=== PATIENT | female | born 1980 | race Caucasian/White ===

== ENCOUNTER 2023-01-07 05:38 | Inpatient (IN) ==
--- NOTE | 2022-12-31 14:47 | Anesthesiology Consultation ---
Date of Service December 31, 2022 Assessment & Plan (1) Encounter for pre-operative examination: Chart Review Chart Review: mica splitter initiated -COVID screening: Per PAT nursing assessment on 12/31/22. No known COVID-19 positive contacts or current COVID-19 related symptoms. Travel screen negative. Patient vaccinated for Covid. At surgeon discretion if preop Covid testing being done. History Surgery Operation Date: 01/07/23 07:30 Proposed Procedures p Primary Section - Mykel Krishna MD Height/Weight Height: 5 ft 4 in Weight: 86.183 kg Allergies Allergy/AdvReac Type Severity Reaction Status Date / Time No Known Allergies Allergy Unverified 12/31/22 13:58 Medications Home Medications Medication Instructions Recorded Confirmed Last Taken 1 tab PO QAM 12/31/22 12/31/22 Unknown Vitamin C 1 tab PO QAM 12/31/22 12/31/22 Unknown calcium 1 tab PO QAM 12/31/22 12/31/22 Unknown choline 1 cap PO QAM 12/31/22 12/31/22 Unknown famotidine 20 mg tablet (Pepcid) 20 mg PO DAILY PRN gerd 12/31/22 12/31/22 Unknown fiber 1 cap PO DAILY 12/31/22 12/31/22 Unknown iron 1 dose PO QAM 12/31/22 12/31/22 Unknown Past Medical History Medical History Depression with anxiety "mild" GERD (gastroesophageal reflux disease) History of hemorrhoids History of migraine Past Family History Family History Other No family history of adverse response to anesthesia Past Surgical History Surgical History History of wisdom tooth extraction Social History Smoking Status: Former smoker Do You Dip or Chew Tobacco: No Smoking End Date: as a teen Hx Alcohol Use: No Hx Substance Use: No substance use type: does not use Lab Results Anesthesia Preop Results Results Anesthesia Widget: WBC 9.26 K/ul (4.8-10.8) 11/27/22 Hgb 13.2 g/dl (12.0-16.0) 11/27/22 Hct 39.0 % (37.0-47.0) 11/27/22 Plt 176 K/uL (130-400) 11/27/22 Na 136 mmol/L (136-145) 11/27/22 K 3.8 mmol/L (3.5-5.1) 11/27/22 Cl 105 mmol/L (98-107) 11/27/22 CO2 25 mmol/L (21-32) 11/27/22 BUN 11 mg/dl (6-23) 11/27/22 Creat 0.72 mg/dl (0.6-1.2) 11/27/22 Glucose Level 76 mg/dl (70-99(Fasting)) 11/27/22 PT 9.8 Seconds (9.0-12.0) 11/27/22 PTT 25.6 Seconds (21.0-31.0) 11/27/22 INR 0.9 (0.9-1.1) 11/27/22 TSH 1.810 uIu/ml (0.300-4.500) 11/27/22 Urine Color Yellow 11/27/22 Urine Appearance Clear (Clear) 11/27/22 Urine pH 7.0 (4.5-7.5) 11/27/22 Urine Specific [place] 1.005 (1.000-1.030) 11/27/22 Urine Protein Negative (Negative) 11/27/22 Urine Glucose (UA) Negative (Negative) 11/27/22 Urine Ketones Negative (Negative) 11/27/22 Urine Blood Negative (Negative) 11/27/22 Urine Nitrite Negative (Negative) 11/27/22 Urine Bilirubin Negative (Negative) 11/27/22 Urine Urobilinogen Negative (Negative) 11/27/22 Urine Leukocyte Esterase Negative (Negative) 11/27/22
[2023-01-07] MEDS ORDERED: LACTATED RINGER'S 1,000 ML IV SCH ×3 (06:00→09:25)
[2023-01-07] MEDS ORDERED: CITRIC ACID/SODIUM CITRATE 15 ML UDC PO SCH (06:00)
[2023-01-07] MEDS ORDERED: ceFAZolin 2,000 MG in SYRINGE 0 ML IV SCH (06:00)
[2023-01-07 06:41] LABS: Basophils # (auto) 0.07 K/uL (0-0.2); Basophils % (auto) 0.8 %; Eosinophils # (auto) 0.18 K/uL (0-0.50); Hematocrit (blood only) 35.5 % (37.0-47.0); Hemoglobin 12.2 g/dl (12.0-16.0); Immature Granulocytes # (auto) 0.08 K/uL (0.01-0.20); Immature Granulocytes % (auto) 0.9 %; Lymphocytes # (auto) 2.26 K/uL (1.2-3.4); Lymphocytes % (auto) 25.3 %; Mean Corpuscular Hemoglobin 29.8 pg (25.0-34.0); Mean Corpuscular Hgb Conc 34.4 g/dL (32.0-36.0); Mean Corpuscular Volume 86.8 fL (80.0-100.0); Mean Platelet Volume 13.4 fL (9.4-12.4); Monocytes # (auto) 0.78 K/uL (0.11-0.59); Monocytes % (auto) 8.7 %; Neutrophils # (auto) 5.55 K/uL (1.40-6.50); Neutrophils % (auto) 62.3 %; Platelet Count 158 K/uL (130-400); RDW Standard Deviation 40.7 fL (36.4-46.3); Red Blood Count 4.09 M/uL (4.20-5.40); White Blood Count 8.92 K/ul (4.8-10.8)
[2023-01-07] MEDS ORDERED: OXYTOCIN 10 UNITS/ML 10ML VIAL ONE ×3 (07:01→08:10)
[2023-01-07] MEDS ORDERED: fentaNYL citrate PF 100 MCG/2 ML VIAL ONE (07:01)
[2023-01-07] MEDS ORDERED: MoRPHine SULFATE PF 1 MG/ML 10 ML AMP/VIAL ONE (07:01)
--- NOTE | 2023-01-07 07:58 | History & Physical Report ---
Date of Service January 07, 2023 Assessment & Plan (1) Breech presentation: Plan Primary Section today Admission and Anticipated Discharge Date Admission Date: January 07, 2023 History of Present Illness Chief Complaint: breech Primary Care Provider: Jet Gomez MD 42 F P0000 at 39+ weeks admitted for primary section for breech. Ultrasound done to confirm breech. covid is negative Allergies Allergy/AdvReac Type Severity Reaction Status Date / Time No Known Allergies Allergy Unverified 12/31/22 13:58 Home Medications Medication Instructions Recorded Confirmed Type 1 tab PO QAM 12/31/22 01/07/23 History Vitamin C 1 tab PO QAM 12/31/22 01/07/23 History calcium 1 tab PO QAM 12/31/22 01/07/23 History choline 1 cap PO QAM 12/31/22 01/07/23 History famotidine 20 mg tablet (Pepcid) 20 mg PO DAILY PRN gerd 12/31/22 12/31/22 History fiber 1 cap PO DAILY 12/31/22 12/31/22 History iron 1 dose PO QAM 12/31/22 12/31/22 History Patient History Medical History Depression with anxiety "mild" GERD (gastroesophageal reflux disease) History of hemorrhoids History of migraine Surgical History History of wisdom tooth extraction Family History Other No family history of adverse response to anesthesia Social History Smoking Status: Never smoker Tobacco Type: Cigarettes Smoking End Date: as a teen; Second Hand Exposure: No; Do You Dip or Chew Tobacco: No; Tobacco Cessation Education Requested by Patient: No Hx Alcohol Use: No Hx Substance Use: No Preferred Language: Arabic Communication Ability: Effective Dumper Bulk System Required: No Beliefs That Will Affect Care: None marital status: Current Living Situation: Spouse and Family Current Living Situation Comment: FOB's children Ally and Jah Other Information That Helps Us Care for You: No Feels Safe at Home: Yes Safety Concerns: Feels Safe At This Time Assistive Devices: None OB History prmip SHACKLER History neg Review of Systems All systems reviewed & are unremarkable except as noted in HPI & below Physical Exam Constitutional: WD/WN, vitals as above Eyes: PERRL, conjunctivae normal, anicteric sclerae Respiratory: normal respiratory effort, lungs clear to auscultation Cardiovascular: RRR, no murmur, no edema Gastrointestinal (Abdomen): normal bowel sounds, soft, nontender, no hepatosplenomegaly Musculoskeletal: Extremities: extremities normal to inspection Skin: no rashes, warm and dry Neurologic: patellar DTR's 2+ bilat, sensation intact Psychiatric: A+Ox3, euthymic affect Genitourinary: OB Exam Monitor Tracing: + external FHT monitor used, + external uterine monitor used, + category I and + normal FHT variability Results & Data ([facility]) Vital Signs (Past 12 Hours) Vital Signs Temp Pulse Resp BP 01/07/23 07:25 36.7 C 16 01/07/23 07:27 65 111/84 01/07/23 06:09 74 115/73 01/07/23 06:04 37.0 C 18 Laboratory Results Laboratory Results - last 72 hr 01/07/23 01/07/23 01/07/23 06:03 06:03 Unknown WBC 8.92 RBC 4.09 L Hgb 12.2 Hct 35.5 L MCV 86.8 MCH 29.8 MCHC 34.4 RDW Std Deviation 40.7 RDW Coeff of Stephanie 13.0 Plt Count 158 MPV 13.4 H Immature Gran % (Auto) 0.9 Neut % (Auto) 62.3 Lymph % (Auto) 25.3 [place] % (Auto) 8.7 Eos % (Auto) 2.0 Baso % (Auto) 0.8 Neut # (Auto) 5.55 Lymph # (Auto) 2.26 [place] # (Auto) 0.78 H Eos # (Auto) 0.18 Baso # (Auto) 0.07 Immature Gran # (Auto) 0.08 SARS-CoV-2, RNA, NAAT NEGATIVE Blood Type A Positive Antibody Screen NEGATIVE Monitoring External Monitor Cat 1
[2023-01-07] MEDS ORDERED: MEPERIDINE HCL 25 MG/ML CARP/VIAL IV PRN (08:06)
[2023-01-07] MEDS ORDERED: KETOROLAC 30 MG/ML VIAL IV PRN (08:06)
[2023-01-07] MEDS ORDERED: NALOXONE HCL 0.08 MG in SYRINGE 1.8 ML IV PRN (08:06)
[2023-01-07] MEDS ORDERED: MoRPHine SULFATE PF 1 MG/ML 10 ML AMP/VIAL INT SPINAL ONE (08:06)
[2023-01-07] MEDS ORDERED: NALBUPHINE HCL INJ 10 MG/ML AMP IV PRN (08:06)
[2023-01-07] MEDS ORDERED: NALOXONE HCL 0.4 MG/1 ML VIAL/CARP IV PRN (08:06)
[2023-01-07] MEDS ORDERED: ePHEDrine sulfate 50 MG/ML AMP IV PRN (08:06)
[2023-01-07] MEDS ORDERED: ONDANSETRON INJ 2 MG/ML 2 ML VIAL IV PRN ×2 (08:06→09:25)
[2023-01-07] MEDS ORDERED: diphenhydrAMINE 50 MG/ML VIAL IV PRN (08:06)
[2023-01-07] MEDS ORDERED: NALOXONE HCL 1 MG in SODIUM CHLORIDE 0.9% 1000ML 1,000 ML IV PRN (08:06)
[2023-01-07] MEDS ORDERED: LACTATED RINGER'S 500 ML IV PRN (08:06)
[2023-01-07] MEDS ORDERED: NO NARCOTICS OR SEDATIVES SCH (08:15)
[2023-01-07] MEDS ORDERED: DC INTRASPINAL MORPHINE SCH (08:15)
[2023-01-07] MEDS ORDERED: SODIUM CHLORIDE 0.9% 1000ML 1,000 ML IV SCH (08:15)
[2023-01-07] MEDS ORDERED: ONDANSETRON INJ 2 MG/ML 2 ML VIAL ONE (08:19)
[2023-01-07] MEDS ORDERED: PHENYLEPHRINE 100MCG/ML 5ML SYR ONE (08:30)
--- NOTE | 2023-01-07 09:14 | Post Operative Brief Note ---
Immediate Post Op Note v1 Date of Surgery January 07, 2023 Pre & Post Diagnosis Operation Date: 01/07/23 07:30 <No data on this case meets the specified criteria> I identified the patient and participated in the time-out.: Yes Procedure Operation Date: 01/07/23 07:30 <No data on this case meets the specified criteria> Surgeon Mykel Krishna MD Professor Of Geography Dr Patterson Estimated Blood Loss 500 Findings Consistent with Post-Op Diagnosis live male Apgars 8/9 weight 7# 2oz. double footling breech Fluids LR 500 ml. Specimens Placent taken home by patient Drains Dangelo Catheter Anesthesia Type Spinal Complications none Disposition Accompanied Patient To Recovery: Yes Disposition: L&D Overlapping Procedure I was present for: the critical portions of procedure. I was immediately available: during the entire case. Back up surgeon: used during listed procedure.
[2023-01-07] MEDS ORDERED: MAGNESIUM HYDROXIDE SUSP 30 ML UDC PO PRN (09:25)
[2023-01-07] MEDS ORDERED: HYDROCORTISONE ACETATE 25 MG SUPP PR PRN (09:25)
[2023-01-07] MEDS ORDERED: FAMOTIDINE 20 MG TAB PO PRN (09:25)
[2023-01-07] MEDS ORDERED: BENZOCAINE 20% AER SPR 82.5 GM CAN EXT PRN (09:25)
[2023-01-07] MEDS ORDERED: DIPHTHERIA/TETANUS/PERTUSSIS 0.5mL SYR/VIAL (Age 7+yrs) IM ONE (09:25)
[2023-01-07] MEDS ORDERED: SENNA 8.6 MG TAB PO PRN (09:25)
--- NOTE | 2023-01-07 09:47 | Anesthesiology Progress Note ---
Date of Service January 07, 2023 Anesthesia Post Procedure Vital Signs Vital Signs: Temp Pulse Resp BP Pulse Ox 01/07/23 09:40 20 01/07/23 09:30 18 01/07/23 09:20 69 18 122/56 L 01/07/23 09:10 75 20 123/64 01/07/23 09:00 98.1 F 01/07/23 07:25 98.1 F 16 01/07/23 09:44 67 96 01/07/23 09:41 68 127/72 01/07/23 09:39 65 97 01/07/23 09:35 73 89 L 01/07/23 09:34 69 97 01/07/23 09:32 69 122/56 L 01/07/23 09:29 65 92 01/07/23 09:26 75 123/64 01/07/23 09:24 99 01/07/23 09:24 99 H 01/07/23 09:24 59 L 85 L 01/07/23 09:20 214 H 220/149 H 01/07/23 09:18 77 99 01/07/23 09:13 62 99 01/07/23 09:08 61 98 01/07/23 09:06 62 91 01/07/23 09:03 60 99 01/07/23 08:58 70 99 01/07/23 08:59 67 109/64 01/07/23 07:27 65 111/84 01/07/23 06:09 74 115/73 01/07/23 06:04 98.6 F 18 Transfer of Care Handoff Completed per policy Notes Mental Status: alert / awake / arousable and participated in evaluation Nausea / Vomiting: adequately controlled Pain: adequately controlled Airway Patency, RR, SpO2: stable & adequate BP & HR: stable & adequate Hydration State: stable & adequate Neuraxial Anesthesia: was administered and sensory block is resolving Anesthetic Complications: no major complications apparent and Pt Satisfied with anesthetic care
[2023-01-07] MEDS ORDERED: OXYTOCIN 20 UNITS in LACTATED RINGER'S 1,000 ML IV SCH (10:00)
[2023-01-07] MEDS ORDERED: ONDANSETRON INJ 2 MG/ML 2 ML VIAL IV STA (11:12)
[2023-01-07] MEDS ORDERED: PROMETHAZINE HCL 12.5 MG in SODIUM CHLORIDE 0.9% 50 ML IV STA (12:46)
[2023-01-07] MEDS: SIMETHICONE 80 MG CHEW PO SCH ×3 (13:12→20:41)
--- NOTE | 2023-01-07 20:11 | Operative Report (OR) ---
DATE OF SURGERY: 01/07/2023. PREOPERATIVE DIAGNOSIS: Breech presentation. POSTOPERATIVE DIAGNOSIS: Breech presentation. PROCEDURE: Primary section, low segment transverse. SURGEON: Mykel Krishna MD. RETAIL ADVERTISING EXECUTIVE: Dr. Patterson. COMPLICATIONS: None. FINDINGS: Live male double footling breech 8 and 9 Apgars, 7 pounds 2 ounces. ESTIMATED BLOOD LOSS: 500 mL. TOTAL FLUIDS: 500 mL. ANESTHESIA: Spinal. Dangelo in place. SPECIMEN: Placenta to be taken home by the patient. CLINICAL HISTORY: The patient is a 42-year-old female, para 0-0-1-0, at 39 weeks and 6 days, admitte d for elective primary section for breech presentation. The patient was scanned prior to e start of the procedure, confirming breech presentation. Timeout was called prior to the start of t he procedure and antibiotics were given preop. DESCRIPTION OF PROCEDURE: Under satisfactory spinal anesthesia, the patient was prepped and draped i n the usual sterile fashion. Low Pfannenstiel incision was made, carrying the incision down into suc cessive layers of abdominal layers into the peritoneal cavity. Once into the peritoneum, bladder fla p was then made. A low segment transverse incision over the uterine segment was made. The incision was widened in the AP diameter, double footling breech was noted. The amniotic sac was nicked and fo und to be clear after grabbing first the left and then the right ankle. The was then delivere d without incident, delivering the arms and legs and finally the head with delayed cord clamping. Ap gars were actually no delayed cord clamping. Cords were doubly clamped and cut. Apgars were 8 and 9 . weight was 7 pounds 2 ounces. Following cutting of the cord, the cord was cleaned with alco hol swab and the patient requested cord blood, which was done without difficulty filling an entire ba g, which was submitted as a separate specimen by the significant other. Placenta was then delivered spontaneously and intact without any difficulty. The uterus was expressed of all clots and debris. Ring forceps were then placed on both angles in the inferior margin. The cervix was dilated wi th another ring. The uterus was closed in double layer closure with 0 Vicryl suture in a continuous interlocking fashion followed by another imbricating suture. Tubes and ovaries bilaterally were foun d to be within normal limits. Uterus was placed back into the normal anatomical position. The initi al sponge, needle, and instrument counts were found to be correct. The fascia was then reapproximate d with 0 Vicryl suture in a continuous fashion. Subcuticular space was irrigated. The subcuticular layer was then closed with 3-0 plain suture, followed by 4-0 Monocryl for skin. Telfa, Steri-Strips, and ABD dressing were applied. Uterus was expressed of all clots and debris at the end of the proce dure. Estimated blood loss 500 mL. Final sponge, needle and instrument count were found to be correc t. The patient was then placed supine on a stretcher and taken to recovery room in stable condition. Job ID: [id number]
[2023-01-07] MEDS: DOCUSATE SODIUM 100 MG CAP PO SCH (20:41)
[2023-01-08] MEDS ORDERED: diphenhydrAMINE Capsule 25 MG CAP PO PRN (02:07)
[2023-01-08] MEDS ORDERED: PROMETHAZINE HCL 25 MG in SODIUM CHLORIDE 0.9% 50 ML IV PRN (02:07)
[2023-01-08] MEDS ORDERED: diphenhydrAMINE 50 MG/ML VIAL IV PRN (02:07)
[2023-01-08] MEDS ORDERED: ACETAMINOPHEN 325 MG TAB PO PRN (02:43)
[2023-01-08] MEDS: oxyCODONE/ACETAMINOPHEN 5mg/325mg TAB PO PRN ×5 (03:31→23:25)
[2023-01-08] MEDS: IBUPROFEN 600 MG TAB PO PRN ×5 (03:31→23:25)
[2023-01-08 06:50] LABS: Basophils # (auto) 0.03 K/uL (0-0.2); Basophils % (auto) 0.3 %; Eosinophils # (auto) 0.08 K/uL (0-0.50); Eosinophils % (auto) 0.8 %; Hemoglobin 9.8 g/dl (12.0-16.0); Immature Granulocytes # (auto) 0.05 K/uL (0.01-0.20); Immature Granulocytes % (auto) 0.5 %; Lymphocytes # (auto) 1.35 K/uL (1.2-3.4); Lymphocytes % (auto) 13.1 %; Mean Corpuscular Hemoglobin 30.2 pg (25.0-34.0); Mean Corpuscular Hgb Conc 33.8 g/dL (32.0-36.0); Mean Corpuscular Volume 89.5 fL (80.0-100.0); Mean Platelet Volume 13.2 fL (9.4-12.4); Monocytes # (auto) 0.78 K/uL (0.11-0.59); Monocytes % (auto) 7.5 %; Neutrophils # (auto) 8.05 K/uL (1.40-6.50); Neutrophils % (auto) 77.8 %; Platelet Count 130 K/uL (130-400); RDW Coefficient of Variation 13.3 % (11.5-14.5); RDW Standard Deviation 43.6 fL (36.4-46.3); Red Blood Count 3.24 M/uL (4.20-5.40); White Blood Count 10.34 K/ul (4.8-10.8)
[2023-01-08] MEDS: DOCUSATE SODIUM 100 MG CAP PO SCH ×2 (08:46→21:57)
[2023-01-08] MEDS: PRENATAL VITAMIN 1 TAB PO SCH (08:46)
[2023-01-08] MEDS: SIMETHICONE 80 MG CHEW PO SCH ×4 (08:46→21:57)
[2023-01-08] MEDS: FERROUS SULFATE 325 MG TAB PO SCH (08:46)
[2023-01-08] MEDS ORDERED: CALCIUM CARBONATE 1250MG TAB PO SCH (09:00)
[2023-01-08] MEDS ORDERED: ASCORBIC ACID 500 MG TAB PO SCH (09:00)
[2023-01-08] MEDS ORDERED: NON-FORMULARY MEDICATION (Prenatal 1 TAB) PO SCH (09:00)
[2023-01-08] MEDS ORDERED: CHOLINE PO SCH (09:00)
[2023-01-08] MEDS ORDERED: NON-FORMULARY MEDICATION (Fiber Capsule) PO SCH (09:00)
--- NOTE | 2023-01-08 09:35 | Obstetrical Progress Note ---
Date of Service January 08, 2023 Assessment & Plan Admission and Anticipated Discharge Date Admission Date: January 07, 2023 Subjective Patient is seen and examined. She feels well, no complaints. Pain is under control with oral meds. Ambulating without dizziness Voiding without difficulty Tolerating regular diet with out N&V Flatus + BM neg Bleeding is minimal No fever/ chills/ CP/ SOB/ N&V/ Leg pain Breast feeding without problems Lab Results 01/07/23 01/07/23 01/07/23 Range/Units 06:03 06:03 Unknown WBC 8.92 (4.8-10.8) K/ul RBC 4.09 L (4.20-5.40) M/uL Hgb 12.2 (12.0-16.0) g/dl Hct 35.5 L (37.0-47.0) % MCV 86.8 (80.0-100.0) fL MCH 29.8 (25.0-34.0) pg MCHC 34.4 (32.0-36.0) g/dL RDW Std Deviation 40.7 (36.4-46.3) fL RDW Coeff of Stephanie 13.0 (11.5-14.5) % Plt Count 158 (130-400) K/uL MPV 13.4 H (9.4-12.4) fL Immature Gran % (Auto) 0.9 % Neut % (Auto) 62.3 % Lymph % (Auto) 25.3 % [place] % (Auto) 8.7 % Eos % (Auto) 2.0 % Baso % (Auto) 0.8 % Neut # (Auto) 5.55 (1.40-6.50) K/uL Lymph # (Auto) 2.26 (1.2-3.4) K/uL [place] # (Auto) 0.78 H (0.11-0.59) K/uL Eos # (Auto) 0.18 (0-0.50) K/uL Baso # (Auto) 0.07 (0-0.2) K/uL Immature Gran # (Auto) 0.08 (0.01-0.20) K/uL SARS-CoV-2, RNA, NAAT NEGATIVE (NEGATIVE) Blood Type A Positive Antibody Screen NEGATIVE 01/08/23 Range/Units 05:58 WBC 10.34 (4.8-10.8) K/ul RBC 3.24 L (4.20-5.40) M/uL Hgb 9.8 L (12.0-16.0) g/dl Hct 29.0 L (37.0-47.0) % MCV 89.5 (80.0-100.0) fL MCH 30.2 (25.0-34.0) pg MCHC 33.8 (32.0-36.0) g/dL RDW Std Deviation 43.6 (36.4-46.3) fL RDW Coeff of Stephanie 13.3 (11.5-14.5) % Plt Count 130 (130-400) K/uL MPV 13.2 H (9.4-12.4) fL Immature Gran % (Auto) 0.5 % Neut % (Auto) 77.8 % Lymph % (Auto) 13.1 % [place] % (Auto) 7.5 % Eos % (Auto) 0.8 % Baso % (Auto) 0.3 % Neut # (Auto) 8.05 H (1.40-6.50) K/uL Lymph # (Auto) 1.35 (1.2-3.4) K/uL [place] # (Auto) 0.78 H (0.11-0.59) K/uL Eos # (Auto) 0.08 (0-0.50) K/uL Baso # (Auto) 0.03 (0-0.2) K/uL Immature Gran # (Auto) 0.05 (0.01-0.20) K/uL SARS-CoV-2, RNA, NAAT (NEGATIVE) Blood Type Antibody Screen Vital Signs Temp Pulse Resp BP Pulse Ox O2 Del Method 01/08/23 01:00 18 98 01/08/23 02:00 16 97 01/08/23 03:50 36.7 C 75 18 103/64 97 Room Air 01/08/23 00:00 18 96 01/07/23 22:00 16 98 01/07/23 23:00 16 97 01/07/23 23:00 36.6 C 78 16 93/57 L 97 Room Air PE: General: Alert, orientedx3, NAD CVS: S1S2 RRR Lungs; CTAB Abd: soft, NT, ND, BS+, fundus firm, below Umbilicus Incision/ Dressing: Clean, dry, intact Perineum intact, Lochia rubra minimal Ext; NT, no edema AP: 42 yo s/p C Section, pod# 1 VSS Afebrile doing well Continue routine postop care Encourage ambulation, PO intake All questions were answered D/C home tomorrow Results & Data Vital Signs (Past 12 Hours) Vital Signs Temp Pulse Resp BP Pulse Ox O2 Del Method 01/08/23 01:00 18 98 01/08/23 02:00 16 97 01/08/23 03:50 36.7 C 75 18 103/64 97 Room Air 01/08/23 00:00 18 96 01/07/23 22:00 16 98 01/07/23 23:00 16 97 01/07/23 23:00 36.6 C 78 16 93/57 L 97 Room Air
[2023-01-08] MEDS ORDERED: bisacodyL 5 MG TABEC PO SCH (20:00)
[2023-01-09 06:37] LABS: Hematocrit (blood only) 26.8 % (37.0-47.0)
[2023-01-09] MEDS: DOCUSATE SODIUM 100 MG CAP PO SCH (08:24)
[2023-01-09] MEDS: SIMETHICONE 80 MG CHEW PO SCH (08:24)
[2023-01-09] MEDS: FERROUS SULFATE 325 MG TAB PO SCH (08:24)
[2023-01-09] MEDS: PRENATAL VITAMIN 1 TAB PO SCH (08:24)
--- NOTE | 2023-01-09 08:25 | Obstetrical Progress Note ---
Date of Service January 09, 2023 Assessment & Plan (1) Normal course: Continue routine care Instructions reviewed with patient, Discharge home today with follow-up in clinic in 1 week for incision check, and 3 and 6-week visit Subjective Ambulation: ambulating normally Voiding: no voiding problems Passing Gas:: Yes Diet Tolerance:: regular diet Lochia:: Moderate Feeding Type:: breast feeding Current Pain Level(1-10): 2 Patient sitting comfortably at the table eating breakfast with her significant other. No complaints at this time. Would like to be discharged home today Physical Exam Constitutional WD/WN, vitals as above Respiratory normal respiratory effort, lungs clear to auscultation Cardiovascular RRR, no murmur, no edema Gastrointestinal (Abdomen) normal bowel sounds, soft, nontender, no hepatosplenomegaly Incision: Clean dry intact, well-healing, no signs of infection Results & Data Vital Signs (Past 12 Hours) Vital Signs Temp Pulse Resp BP Pulse Ox O2 Del Method 01/08/23 23:14 36.8 C 73 18 99/59 L 96 Room Air Laboratory Results Laboratory Results WBC 10.34 K/ul (4.8-10.8) 01/08/23 05:58 RBC 3.24 M/uL (4.20-5.40) L 01/08/23 05:58 Hgb 9.0 g/dl (12.0-16.0) L 01/09/23 06:06 Hct 26.8 % (37.0-47.0) L 01/09/23 06:06 MCV 89.5 fL (80.0-100.0) 01/08/23 05:58 MCH 30.2 pg (25.0-34.0) 01/08/23 05:58 MCHC 33.8 g/dL (32.0-36.0) 01/08/23 05:58 RDW Std Deviation 43.6 fL (36.4-46.3) 01/08/23 05:58 RDW Coeff of Stephanie 13.3 % (11.5-14.5) 01/08/23 05:58 Plt Count 130 K/uL (130-400) 01/08/23 05:58 MPV 13.2 fL (9.4-12.4) H 01/08/23 05:58 Immature Gran % (Auto) 0.5 % 01/08/23 05:58 Neut % (Auto) 77.8 % 01/08/23 05:58 Lymph % (Auto) 13.1 % 01/08/23 05:58 [place] % (Auto) 7.5 % 01/08/23 05:58 Eos % (Auto) 0.8 % 01/08/23 05:58 Baso % (Auto) 0.3 % 01/08/23 05:58 Neut # (Auto) 8.05 K/uL (1.40-6.50) H 01/08/23 05:58 Lymph # (Auto) 1.35 K/uL (1.2-3.4) 01/08/23 05:58 [place] # (Auto) 0.78 K/uL (0.11-0.59) H 01/08/23 05:58 Eos # (Auto) 0.08 K/uL (0-0.50) 01/08/23 05:58 Baso # (Auto) 0.03 K/uL (0-0.2) 01/08/23 05:58 Immature Gran # (Auto) 0.05 K/uL (0.01-0.20) 01/08/23 05:58 SARS-CoV-2, RNA, NAAT NEGATIVE (NEGATIVE) 01/07/23 Unknown Blood Type A Positive 01/07/23 06:03 Antibody Screen NEGATIVE 01/07/23 06:03
[2023-01-09] MEDS: IBUPROFEN 600 MG TAB PO PRN (08:29)
[2023-01-09] MEDS: oxyCODONE/ACETAMINOPHEN 5mg/325mg TAB PO PRN (08:29)
[2023-01-09] MEDS ORDERED: bisacodyL 10 MG SUPP PR PRN (09:07)
--- NOTE | 2023-01-15 14:02 | Discharge Summary (DS) ---
REASON FOR ADMISSION AND HOSPITAL COURSE: The patient was admitted on 01/07/2023 for a primary [place] section for breech presentation. She delivered a live male, double footling breech, Apgars were 8 and 9, and weight was 7 pounds 2 ounces. The hospital course was uncomplicated. The patient was discharged home on 01/09/2023 in stable condition. Home going instructions were given and revie wed. Regular diet on discharge. Medications include ibuprofen and Percocet for pain and follow up w ill be in the office in 1 week for incision check. Job ID: [id number]
== END 2023-01-09 11:45 | disposition home or self-care (01) | DRG 788 ==
LOC: 4S1 05:38 → EDSTATUS 07:30 → 4E2 11:20